=== PATIENT | male | born 1975 | race Caucasian/White ===

== ENCOUNTER 2020-11-14 06:03 | Emergency (ER) | payer BC ==
[~2020-11-14] VITALS: Ht 175.3 cm; Wt 90.7 kg
[2020-11-14 07:27] VITALS: BP 130/97
== END 2020-11-14 07:27 | disposition home or self-care (01) ==
LOC: ER 06:03
DX: S69.91XA Unspecified injury of right wrist, hand and finger(s), initial encounter (principal); Z88.7 Allergy status to serum and vaccine; W19.XXXA Unspecified fall, initial encounter; Y93.89 Activity, other specified; Y92.89 Other specified places as the place of occurrence of the external cause; Y99.8 Other external cause status